=== PATIENT | male | born 1970 | race Caucasian/White ===

== ENCOUNTER 2017-09-05 15:37 | Emergency (ER) | payer BC ==
[~2017-09-05] VITALS: Ht 167.6 cm; Wt 55.7 kg
[2017-09-05 15:41] VITALS: BP 110/73
[2017-09-05] MEDS ORDERED: ZITHROMAX250 MG PO (16:48)
[2017-09-05] MEDS ORDERED: PREDNISONE50 MG PO (16:48)
[2017-09-05] MEDS ORDERED: TESSALON PERLE100 MG PO (16:48)
== END 2017-09-05 17:17 | disposition home or self-care (01) ==
LOC: EME 15:37
DX: J40 Bronchitis, not specified as acute or chronic (principal)
CPT/HCPCS: 71046; 99281; 99285; J7512